=== PATIENT | female | born 1980 | race Hispanic/Latino ===

== ENCOUNTER 2020-02-09 09:02 | Day surgery (SDC) | payer OTHER ==
[2020-02-09] MEDS: SODIUM CHLORIDE 0.9% 500 ML 500 ML IV SCH ×2 (10:44→11:27)
[2020-02-09] MEDS ORDERED: ATROPINE 0.1% (1 MG/10 ML) CARDIAC SYRINGE ONE (10:48)
[2020-02-09] MEDS ORDERED: EPINEPHrine 1 MG/10 ML SYRINGE ONE (10:48)
[2020-02-09] MEDS ORDERED: NITROGLYCERIN 0.4 MG TAB SUBL SL ONE (10:48)
[2020-02-09 13:54] VITALS: BP 113/64
== END 2020-02-09 13:35 | disposition home or self-care (01) ==
LOC: CATHLABREC 09:02
PROVIDERS: ATTEND Internal Medicine
DX: R55 Syncope and collapse (principal); Z79.899 Other long term (current) drug therapy; Z90.49 Acquired absence of other specified parts of digestive tract; E03.9 Hypothyroidism, unspecified; Z98.890 Other specified postprocedural states
CPT/HCPCS: 93660; J7040; J0171; J0461